=== PATIENT | male | born 1970 | race Caucasian/White ===

== ENCOUNTER 2018-01-26 16:23 | Emergency (ER) | payer MEDICARE, MEDICAID ==
[2018-01-26 16:34] VITALS: BP 131/89
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
[2018-01-26] MEDS ORDERED: HYDROCODONE/ACETAMINOPHEN 5-325 MG (6 TAB/ER DISP) PO PRN (18:16)
== END 2018-01-26 18:26 | disposition home or self-care (01) ==
LOC: ER 16:23
DX: I10 Essential (primary) hypertension (principal); M54.2 Cervicalgia
CPT/HCPCS: 99283; A9270

== ENCOUNTER 2018-03-25 17:47 | Emergency (ER) | payer MEDICARE, MEDICAID ==
[2018-03-25] MEDS ORDERED: OXYCODONE-ACETAMINOPHEN 5-325 MG TABLET PO ONE (19:33)
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
[2018-03-25 19:53] VITALS: BP 129/76
== END 2018-03-25 19:50 | disposition home or self-care (01) ==
LOC: ER 17:47
DX: G89.18 Other acute postprocedural pain (principal); K08.89 Other specified disorders of teeth and supporting structures; K08.409 Partial loss of teeth, unspecified cause, unspecified class; F17.210 Nicotine dependence, cigarettes, uncomplicated; Z71.6 Tobacco abuse counseling; Z88.5 Allergy status to narcotic agent
CPT/HCPCS: 99282; A9270